=== PATIENT | male | born 1945 | race Caucasian/White ===

== ENCOUNTER 2019-10-30 09:53 | Observation (INO) | payer OTHER ==
[~2019-10-30] VITALS: Ht 182.9 cm; Wt 122.5 kg
[~2019-10-30 09:53] MED LIST: AMLO5 PO; ATOR40TA PO; Acidophilus La1 EACH PO; BUPR150ER PO; CYAN500 PO; FINA5 PO; FISH OIL 1,0001 EAC2 PO; Flonase 0.05% N16 GM; IBUP800 PO; LOSA50 PO; MAGOXI400 PO; METO100ER PO; OXYC5; Omeprazole20 M1 PO; TAMS.4ER PO; Viagra100 MG PO; Zofran4 MG PO
[2019-10-30] MEDS ORDERED: Aspir 8181 MG PO (10:14)
[2019-10-30] MEDS ORDERED: ATOR40TA PO (10:15)
[2019-10-30] MEDS ORDERED: BUPROPION HCL200 M1 PO (10:15)
[2019-10-30] MEDS ORDERED: B-121000 MC3 PO (10:17)
[2019-10-30] MEDS ORDERED: DOCU100 PO (10:18)
[2019-10-30] MEDS ORDERED: FINA5 PO (10:20)
[2019-10-30] MEDS ORDERED: GABA100 PO (10:21)
[2019-10-30] MEDS ORDERED: GLUCOSE4 GM PO (10:21)
[2019-10-30] MEDS ORDERED: IBUP800 PO (10:22)
[2019-10-30] MEDS ORDERED: BASAGLAR K100 UNIT/1 SC (10:23)
[2019-10-30] MEDS ORDERED: NOVOLOG FL100 UNIT/2 SC (10:23)
[2019-10-30] MEDS ORDERED: LOSA50 PO (10:24)
[2019-10-30] MEDS ORDERED: MOTION-TIME25 MG PO (10:24)
[2019-10-30] MEDS ORDERED: MAGNESIUM OXID400 M1 PO (10:24)
[2019-10-30] MEDS ORDERED: MEMA5TAB PO (10:25)
[2019-10-30] MEDS ORDERED: METO100 PO (10:25)
[2019-10-30] MEDS ORDERED: Nitroglycerin1 EAC3 TOP (10:28)
[2019-10-30] MEDS ORDERED: OMEP20ER PO (10:28)
[2019-10-30] MEDS ORDERED: OXYB5 PO (10:29)
[2019-10-30] MEDS ORDERED: ZOFRAN4 MG PO (10:29)
[2019-10-30 10:30] LABS: BASOPHILS ABSOLUTE AUTO 0.05 K/mm3 (0.00-0.23); BASOPHILS PERCENT AUTO 1 % (0-2); EOSINOPHILS ABSOLUTE AUTO 0.32 K/mm3 (0.00-0.68); EOSINOPHILS PERCENT AUTO 5 % (0-6); Hematocrit 34.6 % (37.0-53.0); Hemoglobin 11.6 g/dL (13.5-17.5); IMMATURE GRAN ABSOLUTE AUTO 0.01 K/mm3 (0.00-0.10); IMMATURE GRAN PERCENT AUTO 0 % (0-1); LYMPHOCYTES ABSOLUTE AUTO 1.68 K/mm3 (0.84-5.20); LYMPHOCYTES PERCENT AUTO 28 % (21-46); MONOCYTES ABSOLUTE AUTO 0.45 K/mm3 (0.16-1.47); MONOCYTES PERCENT AUTO 8 % (4-13); Mean Corpuscular HGB 33.4 pg (26.0-34.0); Mean Corpuscular HGB Conc 33.5 g/dL (31.5-36.5); Mean Corpuscular Volume 100 fL (80-100); Mean Platelet Volume 10.8 fL (9.1-12.4); NEUTROPHILS ABSOLUTE AUTO 3.41 K/mm3 (1.96-9.15); NEUTROPHILS PERCENT AUTO 58 % (41-73); Platelet Count 87 K/mm3 (150-400); RDW Coefficient Variation 13.5 % (11.7-14.2); Red Blood Cell Count 3.47 M/mm3 (4.30-5.90); White Blood Cell Count 5.92 K/mm3 (4.00-11.30)
[2019-10-30] MEDS ORDERED: MIRALAX17 GM PO (10:30)
[2019-10-30] MEDS ORDERED: METAMUCIL0.4 G1 PO (10:31)
[2019-10-30] MEDS ORDERED: SENN187 PO (10:31)
[2019-10-30] MEDS ORDERED: SIME80CH PO (10:32)
[2019-10-30] MEDS ORDERED: TAMS.4ER PO (10:32)
[2019-10-30] MEDS ORDERED: VANICREAM453 GM TOP (10:33)
[2019-10-30 10:42] LABS: Alanine Aminotransfer (ALT/SGP 30 U/L (12-78); Albumin, Blood 2.9 g/dL (3.4-5.0); Albumin/Globulin Ratio 0.9 (0.8-1.8); Alk Phos 100 U/L (50-136); Anion Gap 5 mmol/L (6-16); Aspartate Aminotrans (AST/SGOT 31 U/L (12-37); Bilirubin, Total 0.8 mg/dL (0.1-1.0); Blood Urea Nitrogen 24 mg/dL (8-24); Bun/Creatinine Ratio 13.8 (12.0-20.0); CO2, Blood 24 mmol/L (21-32); Calcium, Blood 8.9 mg/dL (8.5-10.1); Chloride, Blood 115 mmol/L (98-108); Creatinine, Blood 1.74 mg/dL (0.60-1.20); Globulin, Blood 3.4 g/dL (2.2-4.0); Glomerular Filtration Rate 41 (60-); Glucose, Blood 99 mg/dL (70-99); Sodium, Blood 144 mmol/L (136-145); Total Protein, Blood 6.3 g/dL (6.4-8.2); Troponin I <0.015 ng/mL (0.000-0.040)
[2019-10-30] MEDS ORDERED: Daily Multiple1 EACH PO (14:06)
[2019-10-30] MEDS ORDERED: VITAMIN D-32000 UNIT PO (14:07)
--- NOTE | 2019-10-30 18:44 | NUR ---
SHIFT NOTE PT ARRIVED FROM ER THIS AFTER WITH C/O SYNCOPE THIS AM. PT DENIES CP OR SOB. STS THAT HE HAS CONSTIPATION BUT THIS IS BASELINE FOR HIM. PT IS A SLGIHTLY POOR HISTORIAN BUT ASNWERS MOST QUESTIONS APPROPRIATE. PT UP TO BEDSIDE TO USE URINAL BUT REFUSED TO STAY AT BEDSIDE AND WALKED TO BATHROOM AGAINST ADVICE. PT AMBULATED WITH EVEN STEADY GAIT. VSS. PT AND FAMILY ARE UPDATED ON LAB RESULTS AND EXPRESSED UNDERSTANDING. PT A/O X3. SKIN PWD AND INTACT. NSR AT 60BPM ON MONITOR
[2019-10-31 04:22] LABS: BASOPHILS ABSOLUTE AUTO 0.05 K/mm3 (0.00-0.23); BASOPHILS PERCENT AUTO 1 % (0-2); EOSINOPHILS ABSOLUTE AUTO 0.33 K/mm3 (0.00-0.68); EOSINOPHILS PERCENT AUTO 7 % (0-6); Hematocrit 33.1 % (37.0-53.0); Hemoglobin 11.3 g/dL (13.5-17.5); IMMATURE GRAN ABSOLUTE AUTO 0.01 K/mm3 (0.00-0.10); IMMATURE GRAN PERCENT AUTO 0 % (0-1); LYMPHOCYTES ABSOLUTE AUTO 1.67 K/mm3 (0.84-5.20); LYMPHOCYTES PERCENT AUTO 35 % (21-46); MONOCYTES ABSOLUTE AUTO 0.32 K/mm3 (0.16-1.47); MONOCYTES PERCENT AUTO 7 % (4-13); Mean Corpuscular HGB 33.4 pg (26.0-34.0); Mean Corpuscular HGB Conc 34.1 g/dL (31.5-36.5); Mean Corpuscular Volume 98 fL (80-100); Mean Platelet Volume 10.7 fL (9.1-12.4); NEUTROPHILS ABSOLUTE AUTO 2.37 K/mm3 (1.96-9.15); NEUTROPHILS PERCENT AUTO 50 % (41-73); Platelet Count 70 K/mm3 (150-400); RDW Coefficient Variation 13.2 % (11.7-14.2); Red Blood Cell Count 3.38 M/mm3 (4.30-5.90); White Blood Cell Count 4.75 K/mm3 (4.00-11.30)
[2019-10-31 04:46] LABS: Bun/Creatinine Ratio 18.3 (12.0-20.0); Calcium, Blood 8.8 mg/dL (8.5-10.1); Creatinine, Blood 1.26 mg/dL (0.60-1.20)
--- NOTE | 2019-10-31 06:43 | NUR ---
SHIFT SUMMARY PATIENT VERY PLEASENT AND COOPERATIVE THROUGHOUT THE NIGHT. PATIENT APPEARED TO SLEEP WELL WITH NO COMPLAINTS OF PAIN. PATIENT USED HIS CPAP LAST NIGHT, CONTINUOUS BIOX IN PLACE. PATIENT DENIED ANY DIZZINESS OR LIGHT HEADEDNESS LAST NIGHT. VITAL SIGNS CHARTED. WILL CONTINUE TO MONITOR PATIENT AND REPORT TO ONCOMING RN.
[2019-10-31] MEDS ORDERED: ACET325 PO (11:32)
--- NOTE | 2019-10-31 12:12 | NUR ---
IVs ARE REMOVED INTACT AND PRESSURE WRAPPED. PT EXPRESSED UNDERSTANDING OF FOLLOW UP AND MEDICATION CHANGE, AND THAT [facility]. PT PROVIDED WITH ALL BELONGINGS AND TAKEN OUT BY PCT VIA W/C
== END 2019-10-31 12:31 | disposition home or self-care (01) ==
LOC: ER 09:53 → ERHOLD 09:54 → PCU 15:32
PROVIDERS: Emergency Medicine; ADMIT Hospitalist
DX: I95.9 Hypotension, unspecified (principal); N17.9 Acute kidney failure, unspecified; N40.0 Benign prostatic hyperplasia without lower urinary tract symptoms; I10 Essential (primary) hypertension; K21.9 Gastro-esophageal reflux disease without esophagitis; E11.9 Type 2 diabetes mellitus without complications; R55 Syncope and collapse; R00.1 Bradycardia, unspecified; I25.10 Atherosclerotic heart disease of native coronary artery without angina pectoris; Z79.4 Long term (current) use of insulin; G30.9 Alzheimer's disease, unspecified; F02.80 Dementia in other diseases classified elsewhere, unspecified severity, without behavioral disturbance, psychotic disturbance, mood disturbance, and anxiety; Z79.899 Other long term (current) drug therapy; Z79.82 Long term (current) use of aspirin
CPT/HCPCS: 36415; 71045; 80048; 80053; 82947; 84484; 85025; 93005; 93010; 93306; 94660; 94762; 96361; 96372; 96374; 97162; 99285-25; A9270-GY; G0378; J1644; J7030

== ENCOUNTER 2020-01-22 14:05 | Observation (INO) | payer OTHER ==
[~2020-01-22] VITALS: Ht 182.9 cm; Wt 124.8 kg
[~2020-01-22 14:05] MED LIST changes: +ACET325 PO; +Aspir 8181 MG PO; +B-121000 MC3 PO; +BASAGLAR K100 UNIT/1 SC; +BUPROPION HCL200 M1 PO; +DOCU100 PO; +Daily Multiple1 EACH PO; +GABA100 PO; +GLUCOSE4 GM PO; +MAGNESIUM OXID400 M1 PO; +MEMA5TAB PO; +METAMUCIL0.4 G1 PO; +METO100 PO; +MIRALAX17 GM PO; +MOTION-TIME25 MG PO; +NOVOLOG FL100 UNIT/2 SC; +Nitroglycerin1 EAC3 TOP; +OMEP20ER PO; +OXYB5 PO; +SENN187 PO; +SIME80CH PO; +VANICREAM453 GM TOP; +VITAMIN D-32000 UNIT PO; +ZOFRAN4 MG PO
[2020-01-22] MEDS ORDERED: Aspirin EC81 MG PO (14:22)
[2020-01-22] MEDS ORDERED: ATOR10 PO (14:22)
[2020-01-22] MEDS ORDERED: BUPR150ER PO (14:23)
[2020-01-22] MEDS ORDERED: B-121000 MC4 PO (14:24)
[2020-01-22] MEDS ORDERED: Vitamin D2000 UNIT PO (14:24)
[2020-01-22] MEDS ORDERED: DOCU100 PO (14:24)
[2020-01-22] MEDS ORDERED: FINA5 PO (14:24)
[2020-01-22] MEDS ORDERED: FLONASE ALLERG9.9 M2 (14:25)
[2020-01-22] MEDS ORDERED: Norco 10-325 T1 EACH PO (14:26)
[2020-01-22] MEDS ORDERED: IBUP800 PO (14:26)
[2020-01-22] MEDS ORDERED: NOVOLOG100 UNIT/2 SC ×2 (14:27→21:09)
[2020-01-22] MEDS ORDERED: MAGNESIUM OXID500 MG PO (14:28)
[2020-01-22] MEDS ORDERED: MECL25 PO (14:28)
[2020-01-22] MEDS ORDERED: BASAGLAR K100 UNIT/4 SC (14:28)
[2020-01-22] MEDS ORDERED: METO25 PO (14:29)
[2020-01-22] MEDS ORDERED: MULTI-VITAMIN1 EAC2 PO (14:29)
[2020-01-22] MEDS ORDERED: OMEP20ER PO (14:30)
[2020-01-22] MEDS ORDERED: ONDA4 PO (14:30)
[2020-01-22] MEDS ORDERED: Nitroglycerin1 EAC3 TOP (14:30)
[2020-01-22] MEDS ORDERED: MIRALAX17 GM PO (14:31)
[2020-01-22] MEDS ORDERED: SENNA LAXATIVE8.6 MG PO (14:31)
[2020-01-22] MEDS ORDERED: Flomax0.4 MG PO (14:32)
[2020-01-22] MEDS ORDERED: SIME80CH PO (14:32)
[2020-01-22 14:59] LABS: BASOPHILS ABSOLUTE AUTO 0.03 K/mm3 (0.00-0.23); BASOPHILS PERCENT AUTO 0 % (0-2); EOSINOPHILS PERCENT AUTO 0 % (0-6); Hematocrit 37.2 % (37.0-53.0); Hemoglobin 12.7 g/dL (13.5-17.5); IMMATURE GRAN ABSOLUTE AUTO 0.11 K/mm3 (0.00-0.10); IMMATURE GRAN PERCENT AUTO 1 % (0-1); LYMPHOCYTES ABSOLUTE AUTO 0.43 K/mm3 (0.84-5.20); LYMPHOCYTES PERCENT AUTO 4 % (21-46); MONOCYTES ABSOLUTE AUTO 0.57 K/mm3 (0.16-1.47); MONOCYTES PERCENT AUTO 5 % (4-13); Mean Corpuscular HGB 32.6 pg (26.0-34.0); Mean Corpuscular HGB Conc 34.1 g/dL (31.5-36.5); Mean Corpuscular Volume 95 fL (80-100); Mean Platelet Volume 10.7 fL (9.1-12.4); NEUTROPHILS PERCENT AUTO 90 % (41-73); Platelet Count 77 K/mm3 (150-400); RDW Coefficient Variation 13.3 % (11.7-14.2); RDW Standard Deviation 46.4 fL (35.1-46.3); White Blood Cell Count 11.74 K/mm3 (4.00-11.30)
[2020-01-22 15:12] LABS: Alanine Aminotransfer (ALT/SGP 40 U/L (12-78); Albumin/Globulin Ratio 0.9 (0.8-1.8); Alk Phos 127 U/L (50-136); Anion Gap 9 mmol/L (6-16); Aspartate Aminotrans (AST/SGOT 35 U/L (12-37); Bilirubin, Total 2.1 mg/dL (0.1-1.0); Blood Urea Nitrogen 15 mg/dL (8-24); Bun/Creatinine Ratio 16.2 (12.0-20.0); CO2, Blood 23 mmol/L (21-32); Calcium, Blood 9.6 mg/dL (8.5-10.1); Chloride, Blood 109 mmol/L (98-108); Creatinine, Blood 0.93 mg/dL (0.60-1.20); Globulin, Blood 3.4 g/dL (2.2-4.0); Glomerular Filtration Rate >60 (60-); Glucose, Blood 141 mg/dL (70-99); Potassium, Blood 3.9 mmol/L (3.5-5.5); Sodium, Blood 141 mmol/L (136-145); Total Protein, Blood 6.4 g/dL (6.4-8.2)
[2020-01-22 15:57] LABS: Source, Urine Clean Catch
[2020-01-22 16:02] LABS: Bilirubin, Urine Neg (Neg); Blood, Urine 1+ (Neg); Glucose Qualitative, Urine Neg (Neg); Ketones, Urine 1+ (Neg); Leukocyte Esterase, Urine 1+ (Neg); Nitrite, Urine Neg (Neg); Protein, Urine 1+ (Neg); Specific Gravity, Urine 1.015 (1.003-1.022); Urobilinogen, Urine 2+ (Normal)
[2020-01-22 16:16] LABS: Appearance, Urine Clear (Clear); Color, Urine Amber (P-Yellow); Mucus Light (0-Heavy)
[2020-01-22 16:17] LABS: Bacteria Few /hpf; Squamous Epithelial Cells Not Seen /hpf (Few)
[2020-01-22] MEDS ORDERED: GLUCOSE4 GM PO (21:07)
[2020-01-22] MEDS ORDERED: [UNRECOGNIZED DRUG - OTHER] PO (21:15)
[2020-01-22] MEDS ORDERED: Vitamin B Comple1 EA PO (21:20)
[2020-01-22] MEDS ORDERED: VANICREAM453 GM TOP (21:20)
[2020-01-22] MEDS ORDERED: TOCO1000 PO (21:21)
[2020-01-22] MEDS ORDERED: TYLENOL PM PO (21:47)
[2020-01-23 05:16] LABS: BASOPHILS ABSOLUTE AUTO 0.03 K/mm3 (0.00-0.23); BASOPHILS PERCENT AUTO 0 % (0-2); EOSINOPHILS ABSOLUTE AUTO 0.03 K/mm3 (0.00-0.68); EOSINOPHILS PERCENT AUTO 0 % (0-6); Hematocrit 33.3 % (37.0-53.0); Hemoglobin 10.9 g/dL (13.5-17.5); IMMATURE GRAN ABSOLUTE AUTO 0.09 K/mm3 (0.00-0.10); IMMATURE GRAN PERCENT AUTO 1 % (0-1); LYMPHOCYTES ABSOLUTE AUTO 1.16 K/mm3 (0.84-5.20); LYMPHOCYTES PERCENT AUTO 11 % (21-46); MONOCYTES ABSOLUTE AUTO 0.56 K/mm3 (0.16-1.47); MONOCYTES PERCENT AUTO 5 % (4-13); Mean Corpuscular HGB Conc 32.7 g/dL (31.5-36.5); Mean Corpuscular Volume 98 fL (80-100); Mean Platelet Volume 11.1 fL (9.1-12.4); NEUTROPHILS PERCENT AUTO 82 % (41-73); Platelet Count 62 K/mm3 (150-400); RDW Coefficient Variation 13.4 % (11.7-14.2); Red Blood Cell Count 3.41 M/mm3 (4.30-5.90); White Blood Cell Count 10.37 K/mm3 (4.00-11.30)
[2020-01-23 06:04] LABS: Alanine Aminotransfer (ALT/SGP 34 U/L (12-78); Albumin, Blood 2.5 g/dL (3.4-5.0); Albumin/Globulin Ratio 0.8 (0.8-1.8); Alk Phos 102 U/L (50-136); Anion Gap 7 mmol/L (6-16); Aspartate Aminotrans (AST/SGOT 28 U/L (12-37); Bilirubin, Total 2.9 mg/dL (0.1-1.0); Blood Urea Nitrogen 16 mg/dL (8-24); Bun/Creatinine Ratio 15.8 (12.0-20.0); CO2, Blood 24 mmol/L (21-32); Calcium, Blood 8.8 mg/dL (8.5-10.1); Chloride, Blood 110 mmol/L (98-108); Creatinine, Blood 1.01 mg/dL (0.60-1.20); Glomerular Filtration Rate >60 (60-); Glucose, Blood 135 mg/dL (70-99); Potassium, Blood 3.9 mmol/L (3.5-5.5); Sodium, Blood 141 mmol/L (136-145); Total Protein, Blood 5.5 g/dL (6.4-8.2)
--- NOTE | 2020-01-23 06:26 | NUR ---
SHIFT SUMMARY. PATIENT ALERT AND ANSWERES ORIENTATION QUESTIONS APPROPRIATELY. HAS NO PROBLEMS SWALLOWING PILLS WHOLE WITH WATER BUT REQUIRES TO BE FED DUE TO HIS WEAKNESS. PATIENT ABLE TO STAND AND PIVOT FROM THE BED TO THE COMMODE. PATIENT IS VERY WEAK. HOME CPAP IS BEING USED. IV PATENT AND INFUSING WITH NORMAL SALINE AT 75 ML/HR. BED IN LOWEST POSITION WITH WHEELS LOCKED AND ALARM ON. CALL LIGHT WITHIN REACH. REPORT GIVEN TO ONCOMING RN.
--- NOTE | 2020-01-23 17:46 | NUR ---
SHIFT SUMMARY PT A&O X4, NO ACUTE CHANGES THROUGHOUT SHIFT. AMBULATES TO BATHROOM WITH MINIMAL ASSISTANCE AND TOLERATES IT WELL. PT REPORTED DISCOMFORT IN HIS ABD T/O THE DAY. ABD ULTRASOUND SHOWED HEPATIC CIRRHOSIS AND ACITES. PT IS NOW ON 1200 ML FLUID RESTRICTION AND RECIEVING IV LASIX. PT IS SALINE LOCKED. AWAITING PLACEMENT. IS MOVING TO [place] MONDAY AND IS HOPING HE CAN FOLLOW AFTER REHAB.
[2020-01-24 05:17] LABS: BASOPHILS ABSOLUTE AUTO 0.02 K/mm3 (0.00-0.23); BASOPHILS PERCENT AUTO 0 % (0-2); EOSINOPHILS ABSOLUTE AUTO 0.14 K/mm3 (0.00-0.68); EOSINOPHILS PERCENT AUTO 2 % (0-6); Hematocrit 29.7 % (37.0-53.0); Hemoglobin 9.8 g/dL (13.5-17.5); IMMATURE GRAN ABSOLUTE AUTO 0.01 K/mm3 (0.00-0.10); IMMATURE GRAN PERCENT AUTO 0 % (0-1); LYMPHOCYTES ABSOLUTE AUTO 1.48 K/mm3 (0.84-5.20); LYMPHOCYTES PERCENT AUTO 22 % (21-46); MONOCYTES ABSOLUTE AUTO 0.49 K/mm3 (0.16-1.47); MONOCYTES PERCENT AUTO 7 % (4-13); Mean Corpuscular HGB 32.8 pg (26.0-34.0); Mean Corpuscular Volume 99 fL (80-100); Mean Platelet Volume 11.1 fL (9.1-12.4); NEUTROPHILS ABSOLUTE AUTO 4.65 K/mm3 (1.96-9.15); NEUTROPHILS PERCENT AUTO 69 % (41-73); Platelet Count 65 K/mm3 (150-400); RDW Coefficient Variation 13.5 % (11.7-14.2); RDW Standard Deviation 49.2 fL (35.1-46.3); Red Blood Cell Count 2.99 M/mm3 (4.30-5.90); White Blood Cell Count 6.79 K/mm3 (4.00-11.30)
[2020-01-24 05:31] LABS: International Normalized Ratio 1.28; Prothrombin Time Results 13.5 Sec (9.7-11.5)
[2020-01-24 06:04] LABS: Alanine Aminotransfer (ALT/SGP 22 U/L (12-78); Albumin, Blood 2.1 g/dL (3.4-5.0); Albumin/Globulin Ratio 0.7 (0.8-1.8); Alk Phos 90 U/L (50-136); Anion Gap 8 mmol/L (6-16); Aspartate Aminotrans (AST/SGOT 21 U/L (12-37); Bilirubin, Total 1.6 mg/dL (0.1-1.0); Blood Urea Nitrogen 18 mg/dL (8-24); Bun/Creatinine Ratio 17.1 (12.0-20.0); CO2, Blood 23 mmol/L (21-32); Calcium, Blood 8.5 mg/dL (8.5-10.1); Chloride, Blood 109 mmol/L (98-108); Creatinine, Blood 1.05 mg/dL (0.60-1.20); Globulin, Blood 3.2 g/dL (2.2-4.0); Glomerular Filtration Rate >60 (60-); Glucose, Blood 151 mg/dL (70-99); Potassium, Blood 3.5 mmol/L (3.5-5.5); Sodium, Blood 140 mmol/L (136-145); Total Protein, Blood 5.3 g/dL (6.4-8.2)
--- NOTE | 2020-01-24 07:20 | NUR ---
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 PT STATES HE "DIDN'T GET ANY SLEEP" LAST NIGHT. EVERYTIME I CHECKED ON PT, IT APPEARED HE WAS SLEEPING. HE DENIES NAUSEA, DIZZINESS. MEDICATED ONCE FOR ABD DISCOMFORT/PAIN DUE TO THE ACITIES. CURRENTLY ON 1,200 ML FL RESTRICTION. CPAP ON OVERNIGHT. NO ACUTE CHANGES. REPORT GIVEN TO ONCOMING NURSE.
[2020-01-24 08:09] LABS: HBSAG SCREEN Negative (Negative); HEP B CORE AB, TOT Negative (Negative); HEP C VIRUS AB <0.1 (0.0-0.9)
[2020-01-24] MEDS ORDERED: INSULIN LI100 UNIT/6 SC (12:39)
[2020-01-24] MEDS ORDERED: Lasix20 MG PO (12:51)
[2020-01-24] MEDS ORDERED: ACET325 PO (12:52)
[2020-01-24] MEDS ORDERED: ROXICODONE5 MG PO (12:53)
[2020-01-24] MEDS ORDERED: SPIR25 PO (12:54)
[2020-01-24] MEDS ORDERED: LACT10SY PO (12:55)
[2020-01-24] MEDS ORDERED: Xifaxan200 MG (12:55)
--- NOTE | 2020-01-24 16:37 | NUR ---
PT DISCHARGED AT 1630 VIA WHEELCHAIR BY NURSE AND DAUGHTER. DISCHARGE INSTRUCTIONS EXPLAINED TO PT AND DAUGHTER AT BEDSIDE. PT AND DAUGHTER STATED THEY VERBALLY UNDERSTOOD. IV REMOVED WITH NO SIGNS OF INFECTION NOTED.
== END 2020-01-24 16:32 | disposition home or self-care (01) ==
LOC: ER 14:05 → MEDS 14:06
PROVIDERS: Emergency Medicine; Family Medicine; ADMIT Internal Medicine
DX: M54.9 Dorsalgia, unspecified (principal); R53.1 Weakness; R10.9 Unspecified abdominal pain; K74.60 Unspecified cirrhosis of liver; R11.2 Nausea with vomiting, unspecified; F03.90 Unspecified dementia, unspecified severity, without behavioral disturbance, psychotic disturbance, mood disturbance, and anxiety; I10 Essential (primary) hypertension; N40.0 Benign prostatic hyperplasia without lower urinary tract symptoms; K21.9 Gastro-esophageal reflux disease without esophagitis; J98.11 Atelectasis; K80.20 Calculus of gallbladder without cholecystitis without obstruction; I25.10 Atherosclerotic heart disease of native coronary artery without angina pectoris; E11.9 Type 2 diabetes mellitus without complications; Z79.82 Long term (current) use of aspirin; Z79.899 Other long term (current) drug therapy; Z79.4 Long term (current) use of insulin; E66.01 Morbid (severe) obesity due to excess calories; E86.0 Dehydration
CPT/HCPCS: 36415; 74022; 76705; 80053; 81001; 82140; 82947; 85025; 85610; 86317; 86704; 86708; 86803; 87086; 87340; 93005; 93010; 96361; 96374; 96376; 97110; 97116; 97162; 97165; 97535; 99285-25; A9270; A9270-GY; G0378; J1940; J7030